=== PATIENT | male | born 1995 | race Two or more races ===

== ENCOUNTER 2018-05-22 23:05 | Inpatient (IN) | payer OTHER ==
[~2018-05-22] VITALS: Ht 167.6 cm; Wt 68.0 kg
[2018-05-22] MEDS ORDERED: midazolam 100mg in NS 100ml 100 ML IV PRN (23:25)
[2018-05-22] MEDS ORDERED: normal saline 1000ML IV soln IVB ONE (23:30)
[2018-05-22 23:33] LABS: BASOPHILS % (AUTO) 0.2 % (0-1); EOSINOPHILS # (AUTO) 0.2 X10'3 (0-0.9); EOSINOPHILS % (AUTO) 1.3 % (0-6); HEMATOCRIT 38.6 % (42.0-52.0); HEMOGLOBIN 12.9 g/dl (14.0-17.9); LYMPHOCYTES # (AUTO) 7.3 X10'3 (1.1-4.8); LYMPHOCYTES % (AUTO) 52.7 % (21-51); MEAN CORPUSCULAR HEMOGLOBIN 30.1 PG (27.0-31.0); MEAN CORPUSCULAR HGB CONC 33.5 % (33.0-36.5); MEAN CORPUSCULAR VOLUME 89.9 FL (78-98); MEAN PLATELET VOLUME 7.6 FL (7.4-10.4); MONOCYTES # (AUTO) 1.2 X10'3 (0-0.9); MONOCYTES % (AUTO) 8.8 % (2-12); NEUTROPHILS # (AUTO) 5.1 X10'3 (1.8-7.7); PLATELET COUNT 330 X10'3 (140-440); RED CELL DISTRIBUTION WIDTH 13.6 % (11.5-14.5); WHITE BLOOD COUNT 13.9 X10'3 (4.5-11.0)
[2018-05-22 23:40] LABS: ABG BASE EXCESS -3.8 mmol/L (-2.0-3.0); ABG HCO3 23.8 mmol/L (22.0-26.0); ABG PCO2 (T) 53.6 mmHg (35.0-48.0); ABG PH (T) 7.265 (7.350-7.450); FCOHb 2.4 % (0.5-1.5); FMetHb 0.2 % (0.3-1.12); FO2Hb 96.4 % (94-100); MINUTE VOLUME 7 L/min; PEEP 5 cm H2O; RESPIRATORY RATE 16 b/min; RESPIRATORY RATE (OBSERVED) 16 b/min; TIDAL VOLUME 400 mL; TOTAL HEMOGLOBIN 13.8 G/dl (14.0-18.0)
[2018-05-22 23:42] LABS: ALKALINE PHOSPHATASE 75 IU/L (46-116); eGFR 80 ML/MIN
[2018-05-22 23:51] LABS: ALANINE AMINOTRANSFERASE 21 U/L (12-78); ALBUMIN 4.1 G/DL (3.4-5.0); ALBUMIN/GLOBULIN RATIO 1.2 (1.1-1.5); ANION GAP 12 (8-16); ASPARTATE AMINO TRANSFERASE 18 U/L (10-37); BILIRUBIN,TOTAL 0.3 MG/DL (0.1-1.0); BLOOD UREA NITROGEN 10 MG/DL (7-18); BUN/CREATININE RATIO 8.8 (5.4-32.0); CALCIUM 8.1 MG/DL (8.5-10.1); CHLORIDE 100 MMOL/L (99-107); CREATININE 1.13 MG/DL (0.60-1.10); ETHANOL 0.172 GM/DL (0.0-0.010); GLUCOSE 280 MG/DL (70-104); PHOSPHORUS 6.4 MG/DL (2.3-4.5); SODIUM 139 MMOL/L (135-145); TOTAL CARBON DIOXIDE 27.1 MMOL/L (24-32); TOTAL PROTEIN 7.4 G/DL (6.4-8.2)
[2018-05-22 23:53] LABS: MAGNESIUM 2.6 MG/DL (1.5-2.4)
[2018-05-22 23:59] LABS: URINE AMPHETAMINE SCREEN NEGATIVE (Neg); URINE BARBITUATE SCREEN NEGATIVE (Neg); URINE BENZODIAZEPINES SCREEN NEGATIVE (Neg); URINE CANNABINOID SCREEN POSITIVE (Neg); URINE COCAINE SCREEN POSITIVE (Neg); URINE METHADONE SCREEN NEGATIVE (Neg); URINE OPIATE SCREEN NEGATIVE (Neg); URINE PHENCYCLIDINE SCREEN NEGATIVE (Neg)
[2018-05-23] VITALS (13 sets, daily range): BP systolic 95–149; BP diastolic 53–90
[2018-05-23 00:03] LABS: CLARITY,URINE CLEAR (Clear); COLOR,URINE YELLOW (Yellow); GLUCOSE, URINE 500 mg/dl (Neg); KETONES,URINE NEGATIVE (Neg); LEUKOCYTE ESTERASE ,URINE NEGATIVE (Neg); NITRITES, URINE NEGATIVE (Neg); OCCULT BLOOD,URINE TRACE-INTACT (Neg); PROTEIN,URINE NEGATIVE (Neg); UROBILINOGEN,URINE 0.2 E.U/dL (0.2-1.0)
[2018-05-23 00:11] LABS: UA COLLECTION TYPE FOLEY CATH
[2018-05-23 00:19] LABS: BACTERIA,URINE NONE SEEN /HPF (Neg); RBC,URINE 0-2 /HPF (0-2); SQUAMOUS EPITHELIAL CELL,UR FEW /LPF (FEW); WBC,URINE NONE SEEN /HPF (0-4)
[2018-05-23] MEDS ORDERED: potassium 10mEq/100ml NS w/LIDOcaine (10mg/bag) IV SCH (00:25)
[2018-05-23] MEDS ORDERED: ondansetron/PF 4mg/2ml inj IV PRN (01:10)
[2018-05-23] MEDS ORDERED: potassium Cl 40MEQ/NS 500ml 500 ML IV PRN ×2 (01:10)
[2018-05-23] MEDS ORDERED: midazolam 100mg in NS 100ml 100 ML IV PRN (01:10)
[2018-05-23] MEDS ORDERED: acetaminophen 325mg tablet PO PRN ×2 (01:10)
[2018-05-23] MEDS: K, MAG and/or Phos replacement - Verify level? MC SCH ×2 (01:10→08:00)
[2018-05-23] MEDS ORDERED: magnesium hydroxide 30ml (MOM) UD suspension PO PRN (01:10)
[2018-05-23] MEDS ORDERED: normal saline 1000ml 1,000 ML IV SCH ×2 (01:10→12:55)
[2018-05-23] MEDS ORDERED: acetaminophen 650mg rectal suppository RC PRN (01:10)
[2018-05-23] MEDS ORDERED: ipratropium/albuterol 3ml nebule NEB PRN (01:10)
[2018-05-23] MEDS ORDERED: potassium Cl 20 mEq SR tablet PO PRN ×2 (01:10)
[2018-05-23] MEDS ORDERED: dexmedetomidin/NS 400mcg/100ml 100 ML IV SCH (02:05)
[2018-05-23 03:26] LABS: ABG BASE EXCESS -3.1 mmol/L (-2.0-3.0); ABG HCO3 21.3 mmol/L (22.0-26.0); ABG OXYGEN SATURATION 98.4 % (95-98); ABG PCO2 (T) 36.2 mmHg (35.0-48.0); ABG PH (T) 7.389 (7.350-7.450); ABG PO2 (T) 146.8 mmHg (83-108); FCOHb 0.2 % (0.5-1.5); FMetHb 0.3 % (0.3-1.12); FO2Hb 97.9 % (94-100); MINUTE VOLUME 8 L/min; PATIENT TEMPERATURE 37.1; PEEP 5 cm H2O; RESPIRATORY RATE 18 b/min; RESPIRATORY RATE (OBSERVED) 18 b/min; TIDAL VOLUME 450 mL; TOTAL HEMOGLOBIN 12.1 G/dl (14.0-18.0)
[2018-05-23] MEDS ORDERED: pantoprazole 40 MG vial IV SCH (08:00)
[2018-05-23] MEDS ORDERED: NO HOME MEDS (09:33)
[2018-05-24] MEDS ORDERED: mineral oil/petrolatum ophthal oint EACHEYE SCH (02:00)
== END 2018-05-23 14:45 | disposition home or self-care (01) | DRG 917 ==
LOC: ER 23:06 → ED HOLD 05-23 01:10 → EEVIPCON 05-23 01:10 → CICU 2S 05-23 01:53
PROVIDERS: ADMIT Internal Medicine Critical Care Medicine; ATTEND Internal Medicine Critical Care Medicine
PROC: 0BH17EZ Insertion of Endotracheal Airway into Trachea, Via Natural or Artificial Opening (ICD-10-PCS; principal; 2018-05-22)
PROC: 5A1935Z Respiratory Ventilation, Less than 24 Consecutive Hours (ICD-10-PCS; 2018-05-22)
DX: T40.2X1A Poisoning by other opioids, accidental (unintentional), initial encounter (principal); J96.01 Acute respiratory failure with hypoxia; J96.02 Acute respiratory failure with hypercapnia; G92 Toxic encephalopathy; Z79.899 Other long term (current) drug therapy; Y92.89 Other specified places as the place of occurrence of the external cause
CPT/HCPCS: 36415; 36600; 70450; 71045; 80053; 80305; 80320; 81001; 81003; 82803; 82948; 83735; 84100; 84443; 85018; 85025; 87070; 93005; 94003; 94760; 96374; 99291; A6213; C9113; J2250; J2405; J3480; J7030